=== PATIENT | female | born 1965 | race Caucasian/White ===

== ENCOUNTER 2019-03-16 16:26 | Emergency (ER) | payer BC ==
--- OUTSIDE RECORDS SUMMARY | 2019-03-16 16:31 | XMS REPORT | Continuity of Care Document ---
:1965 External Reference #:[id number] Author Name Susanna Gautam M.D. (transmitted by agent of provider Rajeev Connell) Address [address] [place] [id number] Care Team Providers Name Role Phone Carmen Darling MD - Family Care Team Information Manager Endoscopy [phone] Medicine Problems Active Problems Provider Date Current tear of medial cartilage AND/OR meniscus Susanna Gautam M.D. Onset: of knee Localized, primary osteoarthritis of the pelvic Susanna Gautam M.D. Onset: region and thigh Localized, primary osteoarthritis Susanna Gautam M.D. Onset: 02/18/2019 Social History Type Date Description Comments Sex Unknown ETOH Use Currently consumes alcohol Tobacco Use Start: Unknown Patient has never smoked Smoking Status Reviewed: 03/14/19 Patient has never smoked Exercise Type/Frequency Exercises regularly Allergies, Adverse Reactions, Alerts Description No Known Drug Allergies Medications Active Medications SIG Qnty Indications Ordering Provider Date Meloxicam 1 by mouth 30tabs M17.12 Susanna Gautam M.D. 02/18/2019 15mg Tablets every day Multivitamin Adult Unknown Tiger-3 Unknown Probiotic Unknown Immunizations Description No Information Available Vital Signs Date Vital Result Comment 03/14/2019 8:36am Height 65 inches 5'5" Weight 147.00 lb Heart Rate 72 /min BP Systolic 120 mmHg BP Diastolic 72 mmHg Body Temperature 95.1 F Pain Level 3 BMI (Body Mass Index) 24.5 kg/m2 02/18/2019 8:57am Height 65 inches 5'5" Weight 147.00 lb Heart Rate 80 /min BP Systolic 114 mmHg BP Diastolic 82 mmHg Respiratory Rate 16 /min Body Temperature 97.2 F Pain Level 6 BMI (Body Mass Index) 24.5 kg/m2 Results Description No Information Available Procedures Description No Information Available Medical Devices Description No Information Available Encounters Type Date Location Provider Dx Diagnosis Office Visit 02/18/2019 [facility] Susanna Gautam, M17.12 [facility] left knee M17.11 Unilateral primary osteoarthritis, right knee M25.562 Pain in left knee M25.561 Pain in right knee M25.462 Effusion, left knee M25.461 Effusion, right knee M23.8x1 Other internal derangements of right knee Assessments Date Code Description Provider 03/14/2019 M25.552 Pain in left hip Susanna Gautam M.D. 03/14/2019 M16.12 Unilateral primary osteoarthritis, left hip Susanna Gautam M.D. 03/14/2019 M25.561 Pain in right knee Susanna Gautam M.D. 03/14/2019 M25.461 Effusion, right knee Susanna Gautam M.D. 03/14/2019 S83.241A Other tear of medial meniscus, current injury, Susanna Gautam M.D. right knee, initial encounter 02/18/2019 M17.12 Unilateral primary osteoarthritis, left knee Susanna Gautam M.D. 02/18/2019 M17.11 Unilateral primary osteoarthritis, right knee Susanna Gautam M.D. 02/18/2019 M25.562 Pain in left knee Susanna Gautam M.D. 02/18/2019 M25.561 Pain in right knee Susanna Gautam M.D. 02/18/2019 M25.462 Effusion, left knee Susanna Gautam M.D. 02/18/2019 M25.461 Effusion, right knee Susanna Gautam M.D. 02/18/2019 M23.8x1 Other internal derangements of right knee Susanna Gautam M.D. Plan of Treatment 03/14/2019 - Susanna Gautam M.D.M25.552 Pain in left hipFollow up:Follow up: Call Dr. Gautam's Director Video to schedule [id number] Unilateral primary osteoarthritis, left hipM25.561 Pain in right kneeM25.461 Effusion, right kneeS83.241A Other tear of medial meniscus, current injury, right knee, initial encounter Functional Status Description No Information Available Mental Status Description No Information Available Referrals Description No Information Available
[2019-03-16 17:29] VITALS: BP 129/78
--- NOTE | 2019-03-16 17:48 | UC ---
Respiratory Complaint HPI - HPI Summary HPI Summary: 54 year old female with no PMH presents with cough x 10 days, patient was exposed to son who had same sickness ~ 10 days ago, his improved, hers continues to worsen. Denies fever, chills, no sinus pain, no SOB. + cough, usually not productive. Denies nasal drainage/ pressure. no ear problems. minimal throat soreness. - History of Current Complaint Chief Complaint: UCRespiratory Stated Complaint: COUGH Time Seen by Provider: 03/16/19 17:48 Hx Obtained From: Patient Hx Last Menstrual Period: 02/04/14 ?: No Onset/Duration: Sudden Onset, Lasting Days - 10 days Pain Intensity: 0 Pain Scale Used: 0-10 Numeric Character: Cough: Nonproductive Aggravating Factors: Exertion, Deep Breaths Alleviating Factors: Spontaneous Resolution Associated Signs And Symptoms: Negative: Dyspnea, Fever, Chills, Pleuritic Chest Pain, Wheezing, Hemoptysis, Dizziness, Calf Pain, Calf Swelling, Edema, URI, Nasal Congestion, Hoarseness, Sinus Discomfort - Allergies/Home Medications Allergies/Adverse Reactions: Allergies Allergy/AdvReac Type Severity Reaction Status Date / Time No Known Allergies Allergy Verified 03/16/19 17:29 Home Medications: Home Medications Meloxicam [Mobic] 15 mg PO Q6HR 03/16/19 [History Confirmed 03/16/19] PMH/Surg Hx/FS Hx/Imm Hx Previously Healthy: Yes - Surgical History Surgical History: None - Family History Known Family History: Positive: Non-Contributory Negative: Cardiac Disease, Hypertension, Diabetes - Social History Occupation: Employed Full-time Alcohol Use: Weekly Alcohol Amount: 5 nights Substance Use Type: None Smoking Status (MU): Never Smoked Tobacco Review of Systems All Other Systems Reviewed And Are Negative: Yes Constitutional: Positive: Fatigue. Negative: Fever, Chills ENT: Positive: Sore Throat Respiratory: Positive: Shortness Of Breath - with coughing, Cough Is Patient Immunocompromised?: No Physical Exam Triage Information Reviewed: Yes Appearance: Well-Appearing, No Pain Distress, Well-Nourished Vital Signs: Initial Vital Signs Temp 99.1 F 03/16/19 17:25 Pulse 76 03/16/19 17:25 Resp 16 03/16/19 17:25 BP 129/78 03/16/19 17:25 Pulse Ox 98 03/16/19 17:25 Vital Signs Reviewed: Yes Eyes: Positive: Conjunctiva Clear ENT: Positive: Hearing grossly normal, Pharynx normal, TMs normal - L with partial cerumen blocking TM. Negative: Nasal congestion, Tonsillar swelling, Tonsillar exudate, Sinus tenderness, Uvula midline Neck: Positive: Supple, Nontender, No Lymphadenopathy. Negative: Nuchal Rigidity, Enlarged Nodes @ Respiratory: Positive: Chest non-tender, Lungs clear, Normal breath sounds, No respiratory distress, No accessory muscle use. Negative: Respiratory distress, Crackles, Rhonchi, Stridor, Wheezing Cardiovascular: Positive: RRR, No Murmur Neurological Exam: Normal Skin Exam: Normal Respiratory Course/Dx - Course Course Of Treatment: Acute viral bronchitis: - Increase fluid intake - Humidifier at night to prevent drying out throat - Tessalon pearls as needed for coughing - Medrol dose pack/ steroids as needed if no improvement within 2-3 days - Follow up with primary if no improvement within 3-4 days - COugh medication with codeine for sleeping as needed - Differential Dx/Diagnosis Differential Diagnosis/HQI/PQRI: Bronchitis, Lower Resp Infection, Sinusitis Provider Diagnosis: Bronchitis, acute Discharge ED - Sign-Out/Discharge Documenting (check all that apply): Patient Departure All imaging exams completed and their final reports reviewed: No Studies - Discharge Plan Condition: Good Disposition: HOME Prescriptions: Benzonatate CAP* [Tessalon 100 MG CAP*] 100 mg PO TID PRN #30 cap PRN Reason: Cough Codeine Phosphate/Guaifenesin [Guaifen-Codeine 100-10 mg/5 ml] 5 ml PO BEDTIME PRN #30 liquid MDD 5ml PRN Reason: Cough methylPREDNISolone [Medrol] 1 tab PO DAILY #1 tab.ds.pk Patient Education Materials: Acute Bronchitis (ED) Referrals: Carmen Darilng MD [Primary Care Provider] - Additional Instructions: - Increase fluid intake - Humidifier at night to prevent drying out throat - Tessalon pearls as needed for coughing - Medrol dose pack/ steroids as needed if no improvement within 2-3 days - Follow up with primary if no improvement within 3-4 days - COugh medication with codeine for sleeping as needed - Billing Disposition and Condition Condition: GOOD Disposition: Home
== END 2019-03-16 18:10 | disposition home or self-care (01) ==
LOC: UCEAST 16:26
DX: J20.9 Acute bronchitis, unspecified (principal); J02.9 Acute pharyngitis, unspecified
CPT/HCPCS: 99212; G0463